=== PATIENT | male | born 1995 | race Hispanic/Latino ===

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

== ENCOUNTER 2017-05-02 02:02 | Emergency (ER) | payer OTHER | END 2017-05-02 02:41 | LOC: BURERS 02:02 | DX: S06.0X0A Concussion without loss of consciousness, initial encounter (principal); S01.112A Laceration without foreign body of left eyelid and periocular area, initial encounter; J45.909 Unspecified asthma, uncomplicated; F31.9 Bipolar disorder, unspecified; F17.210 Nicotine dependence, cigarettes, uncomplicated; Z71.6 Tobacco abuse counseling; Y04.2XXA Assault by strike against or bumped into by another person, initial encounter; Y92.149 Unspecified place in prison as the place of occurrence of the external cause | CPT/HCPCS: 12011 ==

== ENCOUNTER 2017-05-09 04:35 | Emergency (ER) | payer OTHER, SELFPAY ==
[2017-05-09] MEDS ORDERED: Adacel (T-DAP) 0.5 ML VIAL ONE (05:03)
== END 2017-05-09 05:28 | disposition home or self-care (01) ==
LOC: BURERS 04:35
DX: J34.0 Abscess, furuncle and carbuncle of nose (principal); J45.909 Unspecified asthma, uncomplicated; F31.9 Bipolar disorder, unspecified; F17.210 Nicotine dependence, cigarettes, uncomplicated
CPT/HCPCS: 90471; 90715